=== PATIENT | female | born 1995 | race Caucasian/White ===

== ENCOUNTER 2019-08-23 00:55 | Emergency (ER) | payer OTHER ==
[2019-08-23 01:53] LABS: CHLORIDE,CL 103 mEq/L (98-106); SODIUM,NA 140 mEq/L (136-145)
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
[2019-08-23] MEDS: Iopamidol 755 Mg/ML 100 ML Bottle IVPUSH ONE (02:47)
[2019-08-23] MEDS: Sodium Chloride 0.9% 1,000 ML IV ONE (02:51)
[2019-08-23] MEDS: Diphtheria,Pertussis(Acell),Tetanus Vaccine 0.5 ML Syringe IM ONE (04:27)
== END 2019-08-23 05:25 | disposition home or self-care (01) ==
LOC: CC.ED 00:55
DX: S09.90XA Unspecified injury of head, initial encounter (principal); S00.33XA Contusion of nose, initial encounter; S00.83XA Contusion of other part of head, initial encounter; S10.91XA Abrasion of unspecified part of neck, initial encounter; S80.212A Abrasion, left knee, initial encounter; S80.211A Abrasion, right knee, initial encounter; S80.812A Abrasion, left lower leg, initial encounter; S80.811A Abrasion, right lower leg, initial encounter; F17.210 Nicotine dependence, cigarettes, uncomplicated; Y04.2XXA Assault by strike against or bumped into by another person, initial encounter
CPT/HCPCS: 36415; 70450; 70486; 70491; 80048; 81025; 85025; 90471; 90715; 96360; 99284; J7030; Q9967